=== PATIENT | female | born 1995 | race Caucasian/White ===

== ENCOUNTER → 2017-03-31 | Outpatient (CLI) | payer OTHER | END | disposition home or self-care (01) | LOC: C.LABSPEC 07:40 | PROVIDERS: ATTEND Family Medicine | DX: F41.9 Anxiety disorder, unspecified (principal) ==

== ENCOUNTER 2023-07-09 21:33 | Inpatient (IN) ==
[2023-07-09] MEDS ORDERED: OXYTOCIN 30 UNITS/NSS 30 UNITS/500 ML BAG IV PRN (22:00)
[2023-07-09] MEDS ORDERED: LIDOCAINE 1% LOCAL 20 ML VIAL INFIL PRN (22:00)
--- NOTE | 2023-07-09 22:04 | History & Physical Report ---
Date of Service July 09, 2023 Assessment & Plan (1) with 39 completed weeks gestation: Plan srom with early labor. admit. pitocin as indicated. epidural on demand. fetus category one. anticipate . History of Present Illness Chief Complaint: lof Primary Care Provider: Chrystal Little DO Patient is a 28yowf with iup at 39 0/7 weeks who presents to labor and delivery after a large gush of clear fluid at 8pm and continued leaking. Had not really been having contractions but noting more since rom. no vb. +fm. and Delivery Plans Obesity (BMI between 35-39 @ beginning of ) *Growth US @ 32 wks *Weekly NSTs @ 36wks 06/2022 ASCUS + HPV, AMALIA 1- PAP due at PPX covid unvaccinated OB Labs: Blood Type A Positive 12/03/22 Antibody Screen NEGATIVE 12/03/22 Hemoglobin 13.6 g/dl (12.0-16.0) 04/22/23 Hematocrit 39.1 % (37.0-47.0) 04/22/23 Mean Corpuscular Volume 85.3 fL (80.0-100.0) 12/03/22 Platelet Count 297 K/uL (130-400) 12/03/22 Varicella-Zoster IgG Antibody 2315.00 index 10/16/20 Rubella IgG Antibody Immune (Immune) 12/03/22 Rapid Plasma Reagin Nonreactive (Nonreactive) 12/03/22 Hepatitis B Surface Antigen. NON-REACTIVE (NON-REACTIVE) 12/03/22 Hepatitis C Antibody (EIA) NON-REACTIVE (NON-REACTIVE) 12/03/22 HIV (1&2) Ag and Ab Confirmation NON-REACTIVE (NON-REACTIVE) 12/03/22 Glucose 1 Hour 50 gm Load 126 mg/dl (70-130) 04/22/23 OB Optional Labs: Chlamydia trachomatis RNA Not Detected (NotDetected) 12/03/22 Neisseria gonorrhoeae RNA Not Detected (NotDetected) 12/03/22 Thyroid Stimulating Hormone (TSH) 2.458 uIu/ml (0.300-4.500) 08/31/21 Labs Reviewed: Declines carrier screening--mln cfdna-low risk--mln gbs neg Allergies Allergy/AdvReac Type Severity Reaction Status Date / Time hydrocodone AdvReac Nausea Verified 07/08/23 08:50 Home Medications Medication Instructions Recorded Confirmed Type docosahexaenoic acid [ DHA] 1 tab PO DAILY 04/22/23 07/09/23 History Patient History Medical History (Updated 07/09/23 @ 22:06 by Lori Griffin MD, FACOG) Obesity Migraine Depression Anxiety Surgical History S/P tonsillectomy and adenoidectomy History of excision of pilonidal cyst excision and closure of pilonidal sinus 06/06/18 Dr. 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 Beliefs That Will Affect Care: None marital status: Single marital status details: mother sammy be [phone] Current Living Situation: Significant Other Current Living Situation Comment: lives with fijanae, 1 dog current occupational status: employed current occupation: [employer] Feels Safe at Home: Yes Assistive Devices: Glasses OB History g1--present ENDOSCOPY TECH History noncontributory Physical Exam Constitutional: WD/WN, vitals as above Gastrointestinal (Abdomen): soft, gravid, nt Psychiatric: A+Ox3, euthymic affect Genitourinary: cx--3+/90/-2 grossly ruptured toco--q3-5min efm--130s wtih mod variability, accels present, no decels Results & Data Vital Signs (Past 12 Hours) Vital Signs Temp Pulse Resp BP 07/09/23 21:46 93 H 127/81 07/09/23 21:35 18 07/09/23 21:35 36.8 C 18 Coding Level of Care Code None Diagnoses with 39 completed weeks gestation Z3A.39
[2023-07-09 22:59] LABS: Hematocrit (blood only) 38.4 % (37.0-47.0); Hemoglobin 13.1 g/dl (12.0-16.0); Mean Corpuscular Hemoglobin 29.2 pg (25.0-34.0); Mean Corpuscular Hgb Conc 34.1 g/dL (32.0-36.0); Mean Corpuscular Volume 85.7 fL (80.0-100.0); Mean Platelet Volume 10.7 fL (9.4-12.4); Platelet Count 204 K/uL (130-400); RDW Coefficient of Variation 14.3 % (11.5-14.5); RDW Standard Deviation 44.2 fL (36.4-46.3); Red Blood Count 4.48 M/uL (4.20-5.40); White Blood Count 15.79 K/ul (4.8-10.8)
[2023-07-09] MEDS: LACTATED RINGER'S 1,000 ML IV PRN (23:50)
[2023-07-10] MEDS ORDERED: NALOXONE HCL 1 MG in SODIUM CHLORIDE 0.9% 1,000 ML IV PRN (01:05)
[2023-07-10] MEDS ORDERED: diphenhydrAMINE 50 MG/ML VIAL IV PRN (01:05)
[2023-07-10] MEDS ORDERED: NALOXONE HCL 0.4 MG/1 ML VIAL/CARP IV PRN (01:05)
[2023-07-10] MEDS ORDERED: SODIUM CHLORIDE 0.9% PF INJ 10 ML VIAL EPI PRN (01:05)
[2023-07-10] MEDS ORDERED: ONDANSETRON INJ 2 MG/ML 2 ML VIAL IV PRN (01:05)
[2023-07-10] MEDS ORDERED: fentaNYL citrate PF 100 MCG/2 ML VIAL EPI PRN (01:05)
[2023-07-10] MEDS ORDERED: ePHEDrine sulfate 50 MG/ML AMP IV PRN (01:05)
[2023-07-10] MEDS ORDERED: BUPIVACAINE 0.25% PF 30 ML VIAL EPI PRN (01:05)
[2023-07-10] MEDS ORDERED: NALBUPHINE HCL 5 MG in SYRINGE 0 ML IV PRN (01:05)
[2023-07-10] MEDS ORDERED: ROPIVACAINE 0.5% PF 5 MG/ML 20 ML VIAL EPI PRN (01:05)
[2023-07-10] MEDS ORDERED: LIDOCAINE 2% MPF LOCAL 5 ML VIAL EPI PRN (01:05)
--- NOTE | 2023-07-10 01:08 | Anesthesiology Consultation ---
Date of Service July 10, 2023 Assessment & Plan (1) Encounter for pre-operative examination: Chart Review Chart Review: Patient NOT seen in Pre Admission Testing and Acceptable Risk for Labor Epidural Consults Requested none History Height/Weight Height: 5 ft 6 in Weight: 114.759 kg Allergies Allergy/AdvReac Type Severity Reaction Status Date / Time hydrocodone AdvReac Nausea Verified 07/08/23 08:50 Medications Home Medications Medication Instructions Recorded Confirmed Last Taken docosahexaenoic acid [ DHA] 1 tab PO DAILY 04/22/23 07/09/23 07/08/23 21:30 Active Medications Generic Name Dose Route Start Last Admin Trade Name Freq PRN Reason Stop Dose Admin Lactated Ringer's 1,000 mls @ 125 mls/hr 07/09/23 22:00 07/10/23 01:10 Lr IV 07/11/23 21:59 999 mls/hr .Q8H PRN Infusion L&D Protocol Protocol Past Medical History Medical History (Updated 07/10/23 @ 01:07 by Jadon Briceno MD) Encounter for pre-operative examination Obesity Migraine Depression Anxiety Exercise / Class Metabolic Activity II 4-5 Yardwork/Stairs/Walk up hill Past Family History Family History Grandfather (Paternal) Diabetes Grandmother (Paternal) Breast cancer Family/Other Heart disease Dyslipidemia Hypertension Grandfather (Maternal) Prostate cancer Denies family history of Ovarian cancer Colorectal cancer Uterine cancer Past Surgical History Surgical History S/P tonsillectomy and adenoidectomy History of excision of pilonidal cyst excision and closure of pilonidal sinus 06/06/18 Dr. Man H/O wisdom tooth extraction Social History Smoking Status: Never smoker Do You Dip or Chew Tobacco: No Hx Alcohol Use: Yes Hx Substance Use: No substance use type: does not use Physical Exam Vital Signs Last Vital Signs Temp 36.9 C 07/10/23 01:18 Pulse 101 H 07/10/23 01:36 Resp 18 07/10/23 01:18 BP 129/76 07/10/23 01:12 Pulse Ox 99 07/10/23 01:36 Testing Laboratory Results 07/09/23 22:26 Blood Type A Positive 07/09/23 22:26 Antibody Screen NEGATIVE 07/09/23 22:26
[2023-07-10] MEDS: LIDOCAINE 2%/EPINEPHRINE 1:200,000 20 ML PF ONE (01:45)
[2023-07-10] MEDS: fentaNYL citrate PF 100 MCG/2 ML VIAL ONE (01:45)
[2023-07-10] MEDS: BUPIVACAINE 0.25% PF 30 ML VIAL ONE (01:45)
[2023-07-10] MEDS: SODIUM CHLORIDE 0.9% PF INJ 10 ML VIAL ONE (01:46)
[2023-07-10] MEDS: fentANYL 2 MCG/ML BUPIVacaine 0.125%-NSS 100ML BAG ONE (01:46)
[2023-07-10] MEDS: BUPIVACAINE 0.25% PF 30 ML VIAL EPI STA (02:07)
[2023-07-10] MEDS: ePHEDrine sulfate 50 MG/ML AMP ONE (02:07)
[2023-07-10] MEDS: fentaNYL citrate PF 100 MCG/2 ML VIAL EPI STA (02:07)
[2023-07-10] MEDS: SODIUM CHLORIDE 0.9% PF INJ 10 ML VIAL EPI STA (02:07)
[2023-07-10] MEDS: LIDOCAINE 2%/EPINEPHRINE 1:200,000 20 ML PF EPI STA (02:07)
[2023-07-10] MEDS: OXYTOCIN 30 UNITS/NSS 30 UNITS/500 ML BAG IV PRN (02:15)
--- NOTE | 2023-07-10 07:01 | Labor Progress Brief Note ---
Date of Service July 10, 2023 Subjective comfortable Assessment & Plan (1) with 39 completed weeks gestation: Plan fetus category one. continue pit. iupc placed. Admission and Anticipated Discharge Date Admission Date: July 09, 2023 Physical Exam Physical Exam: cx--4-5/90/-2 toco--q2-3min, pit at 15 iupc placed efm--130s with mod variability, accels to 160s, no decels Results & Data Vital Signs (Past 12 Hours) Vital Signs Temp Pulse Resp BP Pulse Ox 07/10/23 06:56 93 H 97 07/10/23 06:54 90 93 07/10/23 06:51 83 95 07/10/23 06:47 76 93 07/10/23 06:46 81 96 07/10/23 06:45 85 113/62 07/10/23 06:42 79 94 07/10/23 06:41 76 95 07/10/23 06:36 80 96 07/10/23 06:31 76 96 07/10/23 06:30 83 115/65 07/10/23 06:26 74 96 07/10/23 06:21 79 97 07/10/23 06:16 84 97 07/10/23 06:15 79 119/62 07/10/23 06:11 91 H 98 07/10/23 06:06 85 98 07/10/23 06:01 84 98 07/10/23 06:00 76 118/68 07/10/23 05:56 85 96 07/10/23 05:51 79 97 07/10/23 05:50 86 94 07/10/23 05:46 81 118/68 98 07/10/23 05:44 85 94 07/10/23 05:41 76 97 07/10/23 05:36 77 96 07/10/23 05:31 83 98 07/10/23 05:30 77 116/62 07/10/23 05:29 18 07/10/23 05:29 37.0 C 18 07/10/23 05:26 84 97 07/10/23 05:21 90 98 07/10/23 05:16 79 116/68 97 07/10/23 05:11 85 97 07/10/23 05:06 81 98 07/10/23 05:01 79 122/75 100 07/10/23 04:56 86 100 07/10/23 04:51 79 100 07/10/23 04:46 83 98 07/10/23 04:45 76 110/68 07/10/23 04:41 86 97 07/10/23 04:36 85 99 07/10/23 04:31 81 98 07/10/23 04:26 80 96 07/10/23 04:21 74 97 07/10/23 04:19 77 94 07/10/23 04:16 74 96 07/10/23 04:15 77 110/65 07/10/23 04:11 74 96 07/10/23 04:08 83 94 07/10/23 04:06 77 96 07/10/23 04:01 76 95 07/10/23 04:00 81 107/61 07/10/23 03:59 77 93 07/10/23 03:56 76 95 07/10/23 03:51 81 96 07/10/23 03:46 98 07/10/23 03:46 78 07/10/23 03:46 83 111/71 07/10/23 03:41 77 97 07/10/23 03:36 79 97 07/10/23 03:31 18 07/10/23 03:31 36.9 C 18 07/10/23 03:31 98 07/10/23 03:31 82 07/10/23 03:31 79 114/71 07/10/23 03:26 85 98 07/10/23 03:21 77 97 07/10/23 03:16 80 96 07/10/23 03:15 82 114/68 07/10/23 03:11 85 98 07/10/23 03:06 76 96 07/10/23 03:05 80 94 07/10/23 03:01 80 95 07/10/23 03:00 81 113/66 07/10/23 02:56 76 95 07/10/23 02:51 82 95 07/10/23 02:46 82 98 07/10/23 02:41 78 95 07/10/23 02:40 79 119/70 07/10/23 02:36 96 07/10/23 02:36 75 05 02:36 76 121/73 05 02:32 76 124/70 07/10/23 02:31 74 96 05/24 02:27 75 124/74 07/10/23 02:26 74 96 07/10/23 02:21 98 07/10/23 02:21 85 07/10/23 02:21 85 121/70 07/10/23 02:16 97 07/10/23 02:16 82 07/10/23 02:16 80 124/73 07/10/23 02:11 97 07/10/23 02:11 83 07/10/23 02:11 78 123/71 07/10/23 02:07 82 129/76 07/10/23 02:06 83 98 07/10/23 02:01 100 07/10/23 02:01 101 H 07/10/23 02:01 96 H 143/77 H 07/10/23 01:59 18 07/10/23 01:59 18 07/10/23 01:56 98 07/10/23 01:56 92 H 07/10/23 01:56 89 139/86 07/10/23 01:51 85 98 07/10/23 01:50 87 133/83 07/10/23 01:48 90 131/76 07/10/23 01:46 98 07/10/23 01:46 84 07/10/23 01:46 92 H 134/83 07/10/23 01:45 20 07/10/23 01:45 20 07/10/23 01:44 90 131/79 07/10/23 01:42 92 H 123/80 07/10/23 01:41 100 H 98 07/10/23 01:36 101 H 99 07/10/23 01:31 104 H 99 07/10/23 01:26 98 H 99 07/10/23 01:21 88 98 07/10/23 01:18 18 07/10/23 01:18 36.9 C 18 07/10/23 01:16 90 98 07/10/23 01:12 88 129/76 07/10/23 01:11 95 H 99 07/09/23 23:40 20 07/09/23 23:40 36.8 C 20 07/09/23 23:37 90 127/79 07/09/23 21:46 93 H 127/81 07/09/23 21:35 18 07/09/23 21:35 36.8 C 18 Coding Level of Care Code None Diagnoses with 39 completed weeks gestation Z3A.39
[2023-07-10] MEDS: fentANYL 2 MCG/ML BUPIVacaine 0.125%-NSS 100ML BAG EPI PRN (09:28)
[2023-07-10] MEDS ORDERED: NURSING L&D Epidural Breakthrough Pain Update ONE (09:46)
--- NOTE | 2023-07-10 12:37 | Delivery Summary ---
Vaginal Delivery Summary Date of Service July 10, 2023 Vaginal Delivery Summary and 1st Degree LAC (right labial as well) Pre-operative Diagnosis: at 39 weeks srom Post-operative Diagnosis: same Procedure: epidural pitocin augmentation iupc first degree and right labial lac and repair QBL: 217cc Anesthesia: epidural Procedure: The patient presented to labor and delivery with srom prior to the onset of labor. She was monitored and allowed to walk and then got an epidural at 5cm. Pitocin was started and eventually an iupc was placed. She progressed to c/c/+2. The patient pushed for a little over an hour to deliver a viable male infant in helen position. The nose and mouth were bulb suctioned on the perineum and the rest of the infant was then delivered without difficulty. The baby was vigorous. The nose and mouth were again bulb suctioned and the infant was placed in the maternal abdomen for drying and attention. Cord was clamped and cut at one minute of life. Cord blood and segment obtained. Placenta delivered spontaneous, intact with a three vessel cord. Cervix/sulci/rectum were intact. A first degree perineal laceration and right labial laceration was repaired in the normal standard fashion. Hemostasis obtained with dilute pitocin and fundal massage. Apgars were 9/9. Mother and baby doing well at the end of the delivery. [facility] [place] Delivery Type Details: and 1st Degree LAC (right labial as well)
[2023-07-10] MEDS ORDERED: ACETAMINOPHEN 325 MG TAB PO PRN (12:45)
[2023-07-10] MEDS ORDERED: oxyCODONE/ACETAMINOPHEN 5mg/325mg TAB PO PRN (12:45)
[2023-07-10] MEDS ORDERED: bisacodyL 10 MG SUPP PR PRN (12:45)
[2023-07-10] MEDS ORDERED: OXYTOCIN 30 UNITS/NSS 30 UNITS/500 ML BAG IV PRN (12:45)
[2023-07-10] MEDS ORDERED: HYDROCORTISONE ACETATE 25 MG SUPP PR PRN (12:45)
[2023-07-10] MEDS ORDERED: BENZOCAINE 20% SPRY 85 APPLN/85 GM CAN EXT PRN (12:45)
--- NOTE | 2023-07-10 13:59 | Anesthesia Procedure Note ---
Date of Service July 10, 2023 Anesthesia Post Epidural Note Vital Signs Vital Signs: Temp Pulse Resp BP Pulse Ox 36.9 C 108 H 18 118/62 96 07/10/23 09:00 07/10/23 13:29 07/10/23 12:00 07/10/23 13:29 07/10/23 12:26 Pain Intensity Abdomen: Pain Intensity: 2 Notes Mental Status: alert / awake / arousable and participated in evaluation Nausea / Vomiting: adequately controlled Pain: adequately controlled Airway Patency, RR, SpO2: stable & adequate BP & HR: stable & adequate Hydration State: stable & adequate Neuraxial Anesthesia: was administered and sensory block is resolving Anesthetic Complications: no major complications apparent and Pt Satisfied with anesthetic care Epidural: Removed without complications and With tip intact
[2023-07-10] MEDS: IBUPROFEN 600 MG TAB PO PRN (14:42)
[2023-07-10] MEDS: DIPHTHER/TETAN/PERTUS Vaccine (Tdap, Adol/Adult) 0.5mL IM ONE (16:16)
[2023-07-10] MEDS: DOCUSATE SODIUM 100 MG CAP PO SCH (21:10)
--- NOTE | 2023-07-11 06:16 | Obstetrical Progress Note ---
Date of Service <Shon Fuentes MD - Last Filed: 07/11/23 07:12> July 11, 2023 Assessment & Plan <Shon Fuentes MD - Last Filed: 07/11/23 07:12> (1) (normal spontaneous vaginal delivery): Plan 28 yo , status post on 07/10/23, w/ 1st degree LAC and r. labial laceration as well. - Pt doing well clinically. Feels well today. Eating well, voiding well, ambulating well. Pain well controlled with PRN pain meds. - Routine care -- OOB, ambulation, diet progression as tolerated Vital Signs reviewed and WNL, (Tmax at 36.7) with exception of slight tachycardia a few hours after delivery (HR 106) Hemoglobin Reviewed. 13.1 (date) 11.1 (today). Blood Type: B+, GBS-, Rubella Immune. Encourage ambulation, monitor and control pain with Motrin PRN, resume regular diet, monitor lochia. Breast feeding encouraged. After discharge will have 6 week follow-up with Dr. Griffin Pt counselled on discharge instructions, while also counseled that they should stay an additional night. <Lori Griffin MD, FACOG - Last Filed: 07/11/23 07:17> (1) (normal spontaneous vaginal delivery): Subjective <Shon Fuentes MD - Last Filed: 07/11/23 07:12> Ambulation: ambulating normally Voiding: no voiding problems Passing Gas:: Yes Diet Tolerance:: regular diet Lochia:: Moderate Feeding Type:: breast feeding Current Pain Level(1-10): 2 (period cramps (increased while )) Constitutional: + fatigue; no fever, no chills or no body aches Respiratory: no cough, no chest congestion or no dyspnea Cardiovascular: no chest pain or no palpitations Breast: no breast pain Gastrointestinal: + abdominal pain; no nausea, no vomiting, no constipation or no diarrhea/loose stools Genitourinary (female): + dysuria (different than UTI dysuria that pt experienced before); no urinary frequency or no urinary urgency Integumentary: no rash or no pruritus Neurologic: no tingling, no numbness or no headache(s) Physical Exam <Shon Fuentse MD - Last Filed: 07/11/23 07:12> Constitutional WD/WN, vitals as above Respiratory normal respiratory effort, lungs clear to auscultation Cardiovascular RRR, no murmur, no edema Extremities: normal capillary refill; no calf tenderness Gastrointestinal (Abdomen) Inspection/Auscultation: abdomen normal to inspection and normal bowel sounds Percussion/Palpation: + abdomen tender (mild tenderness/cramping tenderness) Skin no rashes, warm and dry Psychiatric A+Ox3, euthymic affect Results & Data <Shon Fuentes MD - Last Filed: 07/11/23 07:12> Vital Signs (Past 12 Hours) Vital Signs Temp Pulse Resp BP O2 Del Method 07/11/23 03:05 36.7 C 82 16 104/70 Room Air 07/10/23 23:30 36.7 C 89 16 120/78 Room Air 07/10/23 19:50 Room Air 07/10/23 19:50 36.7 C 86 16 114/74 Room Air Supervising Physician <Lori Griffin MD, FACOG - Last Filed: 07/11/23 07:17> Co-Signing Physician Notes Resident Physician Supervision Note: I interviewed and examined the patient. Discussed with Dr. Ames and agree with findings and plan as documented in the note. Any exceptions or clarifications are listed here: Doing well. Continued pp care. Documented By: Lori Griffin MD, FACOG
[2023-07-11 06:35] LABS: Hematocrit (blood only) 32.7 % (37.0-47.0); Hemoglobin 11.1 g/dl (12.0-16.0)
[2023-07-11] MEDS: PRENATAL VITAMIN 1 TAB PO SCH (07:57)
[2023-07-11] MEDS: bisacodyL 5 MG TABEC PO SCH (20:01)
--- NOTE | 2023-07-12 06:15 | Obstetrical Progress Note ---
Date of Service <Shon Fuentes MD - Last Filed: 07/12/23 06:29> July 12, 2023 Assessment & Plan <Shon Fuentes MD - Last Filed: 07/12/23 06:29> (1) (normal spontaneous vaginal delivery): Plan 28 yo , status post on 07/10/23, w/ 1st degree LAC and r. labial laceration as well. - Pt doing well clinically. Feels well today. Eating well, voiding well, ambulating well. Pain well controlled with PRN pain meds. - Routine care -- OOB, ambulation, diet progression as tolerated Vital Signs reviewed and WNL, (Tmax at 36.8). Hemoglobin Reviewed. 13.1 (date) 11.1 (yesterday). Blood Type: B+, GBS-, Rubella Immune. Encourage ambulation, monitor and control pain with Motrin PRN, resume regular diet, monitor lochia. Breast feeding encouraged. After discharge will have 6 week follow-up with Dr. Griffin. Pt counselled on discharge instructions, as they'll likely be going home today. <Haylee Quiroga DO - Last Filed: 07/12/23 08:09> (1) (normal spontaneous vaginal delivery): Subjective <Shon Fuentes MD - Last Filed: 07/12/23 06:29> Ambulation: ambulating normally Voiding: no voiding problems (had BM yesterday) Passing Gas:: Yes Diet Tolerance:: regular diet Lochia:: Small Feeding Type:: breast feeding Current Pain Level(1-10): 2 (cramping abdominal pain w/ ) Constitutional: + fatigue; no fever, no chills or no body aches Respiratory: no cough, no chest congestion or no dyspnea Cardiovascular: no chest pain or no palpitations Breast: no breast pain Gastrointestinal: + abdominal pain; no nausea, no vomiting, no constipation or no diarrhea/loose stools Genitourinary (female): no dysuria (no longer any dysuria ), no urinary frequency or no urinary urgency Integumentary: no rash or no pruritus Neurologic: no tingling, no numbness or no headache(s) Physical Exam <Shon Fuentes MD - Last Filed: 07/12/23 06:29> Constitutional WD/WN, vitals as above Respiratory normal respiratory effort, lungs clear to auscultation Cardiovascular RRR, no murmur, no edema Extremities: normal capillary refill; no calf tenderness Gastrointestinal (Abdomen) Inspection/Auscultation: abdomen normal to inspection and normal bowel sounds Percussion/Palpation: + abdomen tender (mild tenderness/cramping tenderness) Skin no rashes, warm and dry Psychiatric A+Ox3, euthymic affect Results & Data <Shon Fuentes MD - Last Filed: 07/12/23 06:29> Vital Signs (Past 12 Hours) Vital Signs Temp Pulse Resp BP Pulse Ox O2 Del Method 07/11/23 23:40 36.8 C 75 16 115/75 98 Room Air Supervising Physician <Haylee Quiroga DO - Last Filed: 07/12/23 08:09> Co-Signing Physician Notes Resident Physician Supervision Note: I interviewed and examined the patient. Discussed with Dr. Fuentes and agree with findings and plan as documented in the note. Any exceptions or clarifications are listed here: PPD#2 doing well, routine recovery. DC home today, reviewed instructions. Documented By: Haylee Quiroga DO
== END 2023-07-12 11:45 | disposition home or self-care (01) | DRG 807 ==
LOC: OPB 21:33 → 4S1 21:34 → 4E2 07-10 16:07